=== PATIENT | female | born 1965 | race Caucasian/White ===

== ENCOUNTER 2018-12-15 19:59 | Observation (INO) ==
[2018-12-15 21:09] LABS: Baso % (Auto) 0.5 % (0.0-2.0); Eos # (Auto) 0.2 th/mm3 (0.0-0.4); Eos % (Auto) 2.1 % (0.0-4.0); Hematocrit 41.8 % (35.0-46.0); Hemoglobin 14.1 gm/dL (11.6-15.3); Lymph # (Auto) 2.9 th/mm3 (1.0-4.8); Lymph % (Auto) 38.5 % (9.0-44.0); Mean Corpuscular HGB Conc 33.7 % (32.0-36.0); Mean Corpuscular Hemoglobin 32.1 pg (27.0-34.0); Mean Corpuscular Volume 95.2 fL (80.0-100.0); Mono # (Auto) 0.6 th/mm3 (0.0-0.9); Mono % (Auto) 8.3 % (0.0-8.0); Neut # (Auto) 3.8 th/mm3 (1.8-7.7); Neut % (Auto) 50.6 % (16.0-70.0); Platelet Count 223 th/mm3 (150-450); Red Blood Count 4.39 mil/mm3 (4.00-5.30); Red Cell Distribution Width 13.8 % (11.6-17.2); White Blood Count 7.6 th/mm3 (4.0-11.0)
[2018-12-15 21:19] LABS: Bilirubin,Urine Negative (Negative); Clarity,Urine Hazy (Clear); Color,Urine Yellow (Yellw/Straw); Glucose,Urine (UA) Negative (Negative); Leukocyte Esterase,Urine Small (Negative); Mucus,Urine Few /lpf (Occasional); Nitrite,Urine Negative (Negative); Specific Gravity,Urine 1.021 (1.002-1.035); Squamous Epithelial Cell,Urine 2 /hpf (0-5)
[2018-12-15 21:22] LABS: Activated Partial Thrombo Time 30.3 sec (23.4-31.7); Prothrombin Time 10.6 sec (9.8-11.6)
[2018-12-15 21:33] LABS: Anion Gap 5 meq/L (5-15); Aspartate Aminotransferase 14 U/L (15-37); Blood Urea Nitrogen 21 mg/dL (7-18); Calcium 8.8 mg/dL (8.5-10.1); Carbon Dioxide 30.3 meq/L (21.0-32.0); Chloride 108 meq/L (98-107); Glomerular Filtration Rate 85 mL/min (>89); Glucose,Random 113 mg/dL (74-106); Potassium 3.5 meq/L (3.5-5.1); Sodium 143 meq/L (136-145)
[2018-12-15 21:34] LABS: Alanine Aminotransferase 20 U/L (10-53)
[2018-12-15 21:38] LABS: Alkaline Phosphatase 80 U/L (45-117); Total Protein 7.2 g/dL (6.4-8.2)
[2018-12-15 21:51] LABS: Creatine Kinase 50 U/L (26-192)
--- NOTE | 2018-12-15 23:47 | ED ---
HPI General Chief complaint: Dizziness Stated complaint: Heart palpitations, respiratory Time Seen by Provider: 12/15/18 23:27 Source: patient, family, RN notes reviewed and old records reviewed Mode of arrival: ambulatory History of Present Illness HPI narrative: 53yF presenting with dizziness. The patient was seen in our department 2 days ago for the same symptoms, had an extensive workup performed which showed no acute abnormalities, and was discharged home with meclizine. The patient states that the meclizine is no longer helping her symptoms. She says that when she goes from a seated to a standing position she gets sudden- onset feeling "like I'm going to pass out", associated with palpitations, diaphoresis, and dyspnea. She says that she has a history of vertigo and feels that these symptoms are different. Denies fever or chills, head injury, chest pain, nausea or vomiting. She has no significant past medical history. Related Data Home Medications Medication Instructions Recorded Confirmed aspirin [Aspir-81] 81 mg PO DAILY 12/13/18 12/15/18 Previous Rx's Medication Instructions Recorded meclizine 25 mg PO DAILY PRN #20 tab 12/14/18 Allergies Allergy/AdvReac Type Severity Reaction Status Date / Time No Known Allergies Allergy Verified 12/15/18 20:17 Review of Systems ROS: all other systems reviewed are negative [facility] Medical History Medical History Patient denies medical problems (Acute) Surgical History Surgical History No history of previous surgery (Acute) Social History Social History Substance History: No History of Abuse Second Hand Smoke Exposure: No Smoking Status: Heavy tobacco smoker Tobacco Type: Cigarettes How Often Do You Have a Drink Containing Alcohol: Never Recent Travel in [facility] within the Last 8 Weeks: No Recent Out of Country Travel within the Last 8 Weeks: No Immunization History Tetanus Immunization: Unsure Exam Const General: healthy appearing and no acute distress [facility] Head: normocephalic and atraumatic Face and sinus: normal facial exam Eyes General: appearance normal, both eyes and all related structures Pupils: PERRL Chest Chest: normal inspection of the chest Resp Effort & Inspection: normal respiratory effort Auscultation: no rhonchi and no wheezes Cardio Rate: regular rate Rhythm: regular rhythm GI Inspection: non-distended Palpation: soft and nontender Skin General: no rashes or lesions noted Neuro General: alert, awake, oriented x3 and no focal motor deficits Other: No nystagmus Motor strength 5/5 and sensation intact to extremities, no drift Patient reports return of symptoms when I asked her to sit up from a lying position Course Initial Documented Vital Signs Temperature 98.5 F 12/15/18 20:12 Pulse Rate 79 12/15/18 20:12 Respiratory Rate 18 12/15/18 20:12 Blood Pressure 127/62 12/15/18 20:12 Pulse Oximetry 100 12/15/18 20:12 Last Documented Vital Signs Temperature 98 F 12/16/18 20:00 Pulse Rate 70 12/16/18 20:00 Respiratory Rate 16 12/16/18 20:00 Blood Pressure 117/63 12/16/18 20:00 Pulse Oximetry 97 12/16/18 20:00 Medical Decision Making [facility] Narrative Medical decision making narrative: Assessment: 53yF presenting with dizziness Plan: Patient had repeat labs sent by training mgr, no abnormalities, negative cardiac enzymes, no anemia or electrolyte abnormalities EKG is NSR, no arrhythmias Will check orthostatic vitals and CXR; if patient is orthostatic, would start IV and give 2L NS bolus If orthostatics/ CXR are negative, would give patient a scopolamine patch and referral to cardiology for outpatient evaluation and possible Holter monitoring ____ Patient was evaluated/reassessed by myself via the RMA process CT of the head is negative and lab work is unremarkable After 2 L orthostatics were repeated and are negative. Patient is still continuing to feel dizzy lightheaded and had palpitations Patient will be admitted to medicine for observation for neurology and cardiology consult Medical Screen Exam Complete: Yes Emergency Medical Condition: Yes Differential Diagnosis Differential Diagnosis: Differential diagnosis includes, but is not limited to: orthostatic hypotension, dehydration, electrolyte abnormality, arrhythmia, URI/ bronchitis, pneumonia, UTI Medical Records Medical records reviewed: Yes I reviewed the patient's medical records. Lab Data Lab results reviewed: Yes I reviewed the patient's lab results. Result diagrams: 12/15/18 20:30 12/15/18 20:30 Lab Results 12/15/18 12/15/1812/15/19 Range/Units 20:30 20:30 20:30 WBC 7.6 (4.0-11.0) th/mm3 RBC 4.39 (4.00-5.30) mil/mm3 Hgb 14.1 (11.6-15.3) gm/dL Hct 41.8 (35.0-46.0) % MCV 95.2 (80.0-100.0) fL MCH 32.1 (27.0-34.0) pg MCHC 33.7 (32.0-36.0) % RDW 13.8 (11.6-17.2) % Plt Count 223 (150-450) th/mm3 MPV 11.0 (7.0-11.0) fL Neut % (Auto) 50.6 (16.0-70.0) % Lymph % (Auto) 38.5 (9.0-44.0) % [place] % (Auto) 8.3 H (0.0-8.0) % Eos % (Auto) 2.1 (0.0-4.0) % Baso % (Auto) 0.5 (0.0-2.0) % Neut # (Auto) 3.8 (1.8-7.7) th/mm3 Lymph # (Auto) 2.9 (1.0-4.8) th/mm3 [place] # (Auto) 0.6 (0.0-0.9) th/mm3 Eos # (Auto) 0.2 (0.0-0.4) th/mm3 Baso # (Auto) 0.0 (0.0-0.2) th/mm3 WBC Differential . Differential Comment Auto diff final PT 10.6 (9.8-11.6) sec INR 1.0 Ratio APTT 30.3 (23.4-31.7) sec Sodium 143 (136-145) meq/L Potassium 3.5 (3.5-5.1) meq/L Chloride 108 H (98-107) meq/L Carbon Dioxide 30.3 (21.0-32.0) meq/L Anion Gap 5 (5-15) meq/L BUN 21 H (7-18) mg/dL Creatinine 0.71 (0.50-1.00) mg/dL Estimated GFR 85 L (>89) mL/min Random Glucose 113 H (74-106) mg/dL Calcium 8.8 (8.5-10.1) mg/dL Magnesium (1.5-2.5) mg/dL Total Bilirubin 0.5 (0.2-1.0) mg/dL AST 14 L (15-37) U/L ALT 20 (10-53) U/L Alkaline Phosphatase 80 (45-117) U/L Total Creatine Kinase 50 (26-192) U/L Troponin I Less than 0.02 L (0.02-0.05) ng/mL Total Protein 7.2 (6.4-8.2) g/dL Albumin 4.0 (3.4-5.0) g/dL Urine Color (Yellw/Straw) Urine Clarity (Clear) Urine pH (5.0-8.5) Ur Specific [place] (1.002-1.035) Urine Protein (Neg-Trace) mg/dL Urine Glucose (UA) (Negative) mg/dL Urine Ketones (Negative) mg/dL Urine Occult Blood (Negative) Urine Nitrate (Negative) Urine Bilirubin (Negative) Urine Urobilinogen (Less than 2) mg/dL Ur Leukocyte Esterase (Negative) Urine WBC (0-5) /hpf Ur Squamous Epith Cells (0-5) /hpf Urine Mucus (Occasional) /lpf Micro UA Comment Ur Microscopic Review Urine Culture Comments 12/15/18 12/16/18 12/16/18 Range/Units 20:30 10:34 13:45 WBC (4.0-11.0) th/mm3 RBC (4.00-5.30) mil/mm3 Hgb (11.6-15.3) gm/dL Hct (35.0-46.0) % MCV (80.0-100.0) fL MCH (27.0-34.0) pg MCHC (32.0-36.0) % RDW (11.6-17.2) % Plt Count (150-450) th/mm3 MPV (7.0-11.0) fL Neut % (Auto) (16.0-70.0) % Lymph % (Auto) (9.0-44.0) % [place] % (Auto) (0.0-8.0) % Eos % (Auto) (0.0-4.0) % Baso % (Auto) (0.0-2.0) % Neut # (Auto) (1.8-7.7) th/mm3 Lymph # (Auto) (1.0-4.8) th/mm3 [place] # (Auto) (0.0-0.9) th/mm3 Eos # (Auto) (0.0-0.4) th/mm3 Baso # (Auto) (0.0-0.2) th/mm3 WBC Differential Differential Comment PT (9.8-11.6) sec INR Ratio APTT (23.4-31.7) sec Sodium (136-145) meq/L Potassium (3.5-5.1) meq/L Chloride (98-107) meq/L Carbon Dioxide (21.0-32.0) meq/L Anion Gap (5-15) meq/L BUN (7-18) mg/dL Creatinine (0.50-1.00) mg/dL Estimated GFR (>89) mL/min Random Glucose (74-106) mg/dL Calcium (8.5-10.1) mg/dL Magnesium 1.9 (1.5-2.5) mg/dL Total Bilirubin (0.2-1.0) mg/dL AST (15-37) U/L ALT (10-53) U/L Alkaline Phosphatase (45-117) U/L Total Creatine Kinase (26-192) U/L Troponin I 0.02 0.02 (0.02-0.05) ng/mL Total Protein (6.4-8.2) g/dL Albumin (3.4-5.0) g/dL Urine Color Yellow (Yellw/Straw) Urine Clarity Hazy H (Clear) Urine pH 7.0 (5.0-8.5) Ur Specific [place] 1.021 (1.002-1.035) Urine Protein Negative (Neg-Trace) mg/dL Urine Glucose (UA) Negative (Negative) mg/dL Urine Ketones Negative (Negative) mg/dL Urine Occult Blood Negative (Negative) Urine Nitrate Negative (Negative) Urine Bilirubin Negative (Negative) Urine Urobilinogen Less than 2 (Less than 2) mg/dL Ur Leukocyte Esterase Small H (Negative) Urine WBC 5 (0-5) /hpf Ur Squamous Epith Cells 2 (0-5) /hpf Urine Mucus Few H (Occasional) /lpf Micro UA Comment Culture not ind Ur Microscopic Review Not Reportable Urine Culture Comments Culture not ind Imaging Data Radiologist's impression: Chest X-Ray 12/15/18 23:39 CONCLUSION: No acute disease ECG Data Attestation: I personally reviewed and interpreted this ECG as follows: Interpretation: Rate: 67 BPM Rhythm: Sinus [place]: Normal Intervals: Normal intervals, no blocks, QTc 404 ms Q waves: aVL T waves: Inverted in aVL ST segments: No elevations or depressions Impression: Non-specific EKG, no changes as compared to EKG from 12/13/2018. Discharge Plan Discharge Disposition Patient Disposition: ED Admit(ED Internal Use Only) Discharge Condition Condition: Stable Discharge Order Discharge Orders: ED Use Only Admit Order (Routine); Ordered 12/16/18 Ordered By: Amisha Redman Discharge Details Diagnosis: Near syncope, Dizziness, Heart palpitations Physicians Team ED Provider: Marguerite Campbell ED Midlevel Provider: Amisha Redman Primary Care Provider: Primary Care Marybeth Paniagua Attending Provider: Josh Vaca Status ED Status: Left Department Discharge Information Discharge Date/Time: 12/16/18 05:43
[2018-12-16] MEDS ORDERED: Sod Chloride 0.9% Inj 2,000 ML IV.SIG ONE (00:10)
--- NOTE | 2018-12-16 00:18 | XR ---
EXAM DATE: 12/16/2018 12:00 AM EST AGE/SEX: 53 years / Female INDICATIONS: . Cough. CLINICAL DATA: This is the patient's initial encounter. Patient reports that signs and symptoms have been present for 1 day and indicates a pain score of 0/10. MEDICAL/SURGICAL HISTORY: None. None. COMPARISON: No prior exams available for comparison. FINDINGS: PA and lateral views of the chest demonstrate the lungs to be symmetrically aerated without evidence of mass, infiltrate or effusion. The cardiomediastinal contours are unremarkable. Osseous structures are intact. CONCLUSION: No acute disease Electronically signed by: Jim Buenrostro MD Board Certified Radiologist 12/16/2018 12:16 AM EST
[2018-12-16] MEDS ORDERED: LORazepam 0.5 MG Tablet PO ONE ×2 (03:30→03:34)
[2018-12-16] MEDS ORDERED: Bisacodyl 10 MG Supp RECTAL PRN (03:50)
[2018-12-16] MEDS ORDERED: Acetaminophen 325 MG Tablet PO PRN (03:50)
[2018-12-16] MEDS: Sod Chloride 0.9% Inj 1,000 ML IV.CONT SCH ×2 (04:01→15:12)
--- NOTE | 2018-12-16 04:50 | P.HPIM ---
History of Present Illness Primary Care Physician: No Primary Care Physician History of Present Illness: This is a 53-year-old female with no significant PMH who presents the ER with complaints of significant dizziness and near syncopal episode. Seen in the ER on 12/13/2018 for similar complaints w/ negative work up, s/p Meclizine w/ improvement, states she was feeling better by the time she was discharged, however has been having worsening dizziness unrelieved by Meclizine. Today w/ intense dizziness and near syncopal event in addition to c/o palpitations. Notes increased stress/anxiety due to 's recent ID. On arrival, BP 145/87, HR is 77, O2 sat 99% on RA, Afebrile. CBC unremarkable. INR 1.0. BUN 21, previously 16 on 12/13/2018. Troponin negative. UA negative for UTI. Orthostatic Vitals +, s/p 2L IVF in ER w/ normal orthostatics, however persistent dizziness. Diagnosis (1) Near syncope: (2) Dizziness: (3) Heart palpitations: Review of Systems PAST FAMILY HISTORY: Reviewed. No h/o DM or CAD Review of Systems: all other systems reviewed are negative [facility] Medical History Medical History Patient denies medical problems (Acute) Surgical History Surgical History No history of previous surgery (Acute) Social History Social History Substance History: No History of Abuse Second Hand Smoke Exposure: Yes Smoking Status: Heavy tobacco smoker Tobacco Type: Cigarettes How Often Do You Have a Drink Containing Alcohol: Never Recent Travel in [facility] within the Last 8 Weeks: No Recent Out of Country Travel within the Last 8 Weeks: No Immunization History Tetanus Immunization: Unsure Medications and Allergies Allergies Allergy/AdvReac Type Severity Reaction Status Date / Time No Known Allergies Allergy Verified 12/15/18 20:17 Home Medications Medication Instructions Recorded Confirmed Type aspirin [Aspir-81] 81 mg PO DAILY 12/13/18 12/15/18 History Active Medications: Active Medications Acetaminophen (Tylenol) 650 mg PO Q4H PRN PRN Reason: Temp > 100.4 Al Hydroxide/Mg Hydroxide (Milk Of Magnesia Liq) 30 ml PO Q12H PRN PRN Reason: Mild Constipation Aspirin (Ecotrin) 81 mg PO DAILY YARIEL Bisacodyl (Dulcolax Supp) 10 mg RECTAL DAILY PRN PRN Reason: SEVERE CONSITIPATION Sodium Chloride (Ns Inj) 1,000 mls @ 100 mls/hr IV.CONT .Q10H YARIEL Lactulose (Lactulose Liq) 30 ml PO DAILY PRN PRN Reason: SEVERE CONSITIPATION Lorazepam (Ativan Inj) 1 mg IV.PUSH Q2H PRN PRN Reason: DIZZINESS Meclizine HCl (Antivert) 25 mg PO Q8H PRN PRN Reason: DIZZINESS Ondansetron HCl (Zofran Inj) 4 mg IV.PUSH Q6H PRN PRN Reason: NAUSEA OR VOMITING Senna/Docusate Sodium (Chandni-Colace) 1 tab PO BID YARIEL Sennosides (Senokot) 17.2 mg PO Q12H PRN PRN Reason: Moderate Constipation Sodium Chloride (Ns Flush) 2 ml IV.FLUSH BID YARIEL Sodium Chloride (Ns Flush) 2 ml IV.FLUSH PRN PRN PRN Reason: FLUSH AFTER USING IV ACCESS Physical Exam Vital signs: Vital Signs 12/15/18 20:12 Temperature 98.5 F Pulse Rate 79 Respiratory Rate 18 Blood Pressure 127/62 Pulse Oximetry 100 Intake & Output 12/15/18 12/15/18 12/16/18 06:59 18:59 06:59 Intake Total 1999 Balance 1999 Weight 56.699 kg Intake: IV 1999 NS Inj 2,000 ML @ Wide Open IV. 1999 SIG BOLUS ONE Rx#:[id number] Narrative: PE: GENERAL: Very pleasant middle-aged white female in no acute distress. at bedside. +dizziness upon sitting up. SKIN: Focused skin assessment warm and dry. HEENT: PERRLA, EOMI. No scleral icterus or conjunctival pallor. No lid lag or facial droop. CARDIOVASCULAR: Regular rate and rhythm. No obvious murmurs to auscultation. No chest tenderness to palpation. RESPIRATORY: No obvious rhonchi or wheezing. Clear to auscultation. Breath sounds equal bilaterally. GASTROINTESTINAL: Abdomen soft, non-tender, nondistended. BS normal. MUSCULOSKELETAL: Extremities without clubbing, cyanosis, or edema. No obvious deformities. NEUROLOGICAL: Awake, alert and oriented x4. No focal neurologic deficits. Moving both upper and lower extremities spontaneously. PSYCHIATRIC: Appropriate mood and affect. Insight and judgment normal. Results Labs CBC & Chem 7: 12/15/18 20:30 12/15/18 20:30 Imaging Impressions Chest X-Ray 12/15/18 23:39 CONCLUSION: No acute disease Caprini VTE Risk Assessment Caprini VTE Risk Assessment: No/Low Risk (score <= 1) Caprini Risk Assessment Model: Point Value = 1 Point Value = 2 Point Value = 3 Point Value = 5 Age 41-60 Minor surgery BMI > 25 kg/m2 Swollen legs Varicose veins or History of unexplained or recurrent spontaneous Oral contraceptives or hormone replacement Sepsis (< 1 month) Serious lung disease, including pneumonia (< 1 month) Abnormal pulmonary function Acute myocardial infarction Congestive heart failure (< 1 month) History of inflammatory bowel disease Medical patient at bed rest Age 61-74 Arthroscopic surgery Major open surgery (> 45 min) Laparoscopic surgery (> 45 min) Malignancy Confined to bed (> 72 hours) Immobilizing plaster cast Central venous access Age >= 75 History of VTE Family history of VTE Factor V Leiden Prothrombin [id number] Lupus anticoagulant Anticardiolipin antibodies Elevated serum homocysteine Heparin-induced thrombocytopenia Other congenital or acquired thrombophilia Stroke (< 1 month) Elective arthroplasty Hip, pelvis, or leg fracture Acute spinal cord injury (< 1 month) Prophylaxis Regimen: Total Risk Factor Score Risk Level Prophylaxis Regimen 0-1 Low Early ambulation 2 Moderate Order ONE of the following: *Sequential Compression Device (SCD) *Heparin 5000 units SQ BID 3-4 Higher Order ONE of the following medications: *Heparin 5000 units SQ TID *Enoxaparin/Lovenox 40 mg SQ daily (WT < 150 kg, CrCl > 30 mL/min) *Enoxaparin/Lovenox 30 mg SQ daily (WT < 150 kg, CrCl > 10-29 mL/min) *Enoxaparin/Lovenox 30 mg SQ BID (WT < 150 kg, CrCl > 30 mL/min) AND/OR *Sequential Compression Device (SCD) 5 or more Highest Order ONE of the following medications: *Heparin 5000 units SQ TID (Preferred with Epidurals) *Enoxaparin/Lovenox 40 mg SQ daily (WT < 150 kg, CrCl > 30 mL/min) *Enoxaparin/Lovenox 30 mg SQ daily (WT < 150 kg, CrCl > 10-29 mL/min) *Enoxaparin/Lovenox 30 mg SQ BID (WT < 150 kg, CrCl > 30 mL/min) AND *Sequential Compression Device (SCD) Assessment and Plan (1) Near syncope: Code(s): R55 - Syncope and collapse Status: Acute (2) Dizziness: Code(s): R42 - Dizziness and giddiness Status: Acute (3) Heart palpitations: Code(s): R00.2 - Palpitations Status: Acute Plan A/P: 1. Dizziness: h/o Vertigo, seen in ER on 12/13/18 for similar complaints, initially improved w/ Meclizine, now unrelieved. +Orthostatic Vitals/ dehydration likely underlying etiology, CT Head w/ no acute findings. PT for eval/tx, IVF for hydration, Meclizine prn, Ativan prn. 2. Near Syncope: secondary to above, IVF for hydration, telemetry, Check Echo to eval for valvular abnormality/cardiomyopathy, monitor I/O. 3. Palpitations: secondary to above, electrolytes normal, add Mg, telemetry, check Echo as above. 4. DVT Prophylaxis: SCD/teds. 5. Social work for DC planning as needed 6. Case discussed at length with the ER physician, labs/records/imaging reviewed by me.
[2018-12-16] MEDS: Senna/Docusate Sodium 8.6/50 MG Tablet PO SCH ×3 (10:14→20:38)
[2018-12-16 11:52] LABS: Magnesium 1.9 mg/dL (1.5-2.5)
[2018-12-16 11:54] LABS: Troponin I 0.02 ng/mL (0.02-0.05)
--- NOTE | 2018-12-16 14:08 | ECHRPT ---
Indication: SYNCOPE CONCLUSIONS Normal left ventricular size. Wall thickness is normal. Left ventricular systolic function is normal with an estimated ejection fraction in the range of 50- 55%. No definite regional wall motion abnormalities are present. No definite valvular abnormalities. The aortic valve is not well visualized. BP: / HR: Rhythm: Sinus MEASUREMENTS (Male / Female) Normal Values Technical Quality:Fair 2D ECHO LV Diastolic Diameter PLAX 4.2 cm 4.2 - 5.9 / 3.9 - 5.3 cm LV Systolic Diameter PLAX 2.9 cm IVS Diastolic Thickness 0.9 cm 0.6 - 1.0 / 0.6 - 0.9 cm LVPW Diastolic Thickness 0.8 cm 0.6 - 1.0 / 0.6 - 0.9 cm LV Relative Wall Thickness 0.4 RV Internal Dim ED PLAX 2.3 cm LVOT Diameter 2.0 cm Aortic Root Diameter 2.7 cm LA Systolic Diameter LX 2.7 cm 3.0 - 4.0 / 2.7 - 3.8 cm M-MODE AV Cusp Separation MM 1.5 cm DOPPLER AV Peak Velocity 112.0 cm/s AV Peak Gradient 5.0 mmHg AV Mean Gradient 3.0 mmHg AV Velocity Time Integral 23.3 cm LVOT Peak Velocity 97.0 cm/s LVOT Peak Gradient 3.8 mmHg LVOT Velocity Time Integral 21.2 cm AV Area Cont Eq vti 2.9 cm AV Area Cont Eq pk 2.7 cm Mitral E Point Velocity 91.8 cm/s Mitral A Point Velocity 69.6 cm/s Mitral E to A Ratio 1.3 LV E' Lateral Velocity 13.5 cm/s Mitral E to LV E' Lateral Ratio 6.8 LV E' Septal Velocity 12.6 cm/s Mitral E to LV E' Septal Ratio 7.3 FINDINGS LEFT VENTRICLE Normal left ventricular size. Wall thickness is normal. Left ventricular systolic function is normal with an estimated ejection fraction in the range of 50- 55%. No definite regional wall motion abnormalities are present. RIGHT VENTRICLE Normal right ventricular size and systolic function. LEFT ATRIUM The left atrial size is normal. RIGHT ATRIUM The right atrial size is normal. ATRIAL SEPTUM No atrial level shunt is demonstrated by color flow Doppler interrogation. AORTA The aortic root and proximal ascending aorta are not well visualized. MITRAL VALVE Structurally normal mitral valve. No mitral valve stenosis or regurgitation. AORTIC VALVE The aortic valve is not well visualized. TRICUSPID VALVE Structurally normal tricuspid valve. No tricuspid valve stenosis or regurgitation. PULMONARY VALVE The pulmonary valve is not well visualized. VESSELS The inferior vena cava is normal in size. PERICARDIUM No pericardial effusion. Christoph Ray MD (Electronically Signed) Final Date:16 December 2018 14:06
--- NOTE | 2018-12-16 14:11 | ECG ---
Date Performed: 12/15/2018 Time Performed: 20:26:59 PTAGE: 53 years EKG: Sinus rhythm NONSPECIFIC ST & T-WAVE ABNORMALITY BORDERLINE ECG No significant change from prior electrocardiogra m. PREVIOUS TRACING : 12/13/2018 21.18 DOCTOR: Matt Verduzco Interpretating Date/Time 12/16/2018 14:10:00
[2018-12-17] MEDS: Sod Chloride 0.9% Inj 1,000 ML IV.CONT SCH ×2 (00:38→11:59)
[2018-12-17 07:29] VITALS: RESP 18
--- NOTE | 2018-12-17 09:07 | P.PNIM ---
Subjective Interval history: Follow-up visit dizziness, vertigo Patient seen and examined while resting in bed. Significant other at bedside. Patient expresses concern over persistent vertigo and dizziness. She recently witnessed her significant other have a heart attack and chest compressions. Since this event she reports increased anxiety and concern over PTSD. She is tearful at time of examination. Patient expresses concern over her unsteady gait. She reports feeling "wabbly"and is afraid of not being able to ambulate on her own. Patient states vertigo and dizziness were present before witnessing the heart attack but states symptoms slightly worse since the incident. Physical Exam Vital signs: Vital Signs 12/16/18 10:15 12/16/18 11:54 12/16/18 15:40 Temperature 98.4 F 98.0 F Pulse Rate 73 56 L 62 Respiratory Rate 16 16 Blood Pressure 108/57 L 183/75 H Pulse Oximetry 96 97 12/16/18 16:00 12/16/18 20:00 12/17/18 00:00 Temperature 98.4 F 98 F Pulse Rate 58 L 60 65 Respiratory Rate 16 16 Blood Pressure 122/63 117/63 Pulse Oximetry 97 97 12/17/18 01:14 12/17/18 04:00 12/17/18 07:27 Temperature 97.9 F 97.9 F 98.5 F Pulse Rate 58 L 62 68 Respiratory Rate 16 16 18 Blood Pressure 115/66 122/64 121/67 Pulse Oximetry 97 97 98 Intake & Output 12/16/18 12/17/18 12/17/18 18:59 06:59 18:59 Intake Total 1000 / 1000 1180 / 1180 Balance 1000 / 1000 1180 / 1180 Intake: IV 1000 / 1000 1000 / 1000 NS Inj 1,000 ML @ 100 mls/hr IV 1000 / 1000 1000 / 1000 .CONT .Q10H [facility] Rx#:[id number] Oral 180 / 180 Other: # Voids 7 2 Date of Last Bowel Movement 12/15/18 12/16/18 # Bowel Movements 1 Narrative: GENERAL: Very pleasant middle-aged white female in no acute distress. at bedside. +dizziness upon sitting/standing up. SKIN: Focused skin assessment warm and dry. HEENT: PERRLA, EOMI. No scleral icterus or conjunctival pallor. No lid lag or facial droop. CARDIOVASCULAR: Regular rate and rhythm. No obvious murmurs to auscultation. No chest tenderness to palpation. RESPIRATORY: No obvious rhonchi or wheezing. Clear to auscultation. Breath sounds equal bilaterally. GASTROINTESTINAL: Abdomen soft, non-tender, nondistended. BS normal. MUSCULOSKELETAL: Extremities without clubbing, cyanosis, or edema. No obvious deformities. NEUROLOGICAL: Awake, alert and oriented x4. No focal neurologic deficits. Moving both upper and lower extremities spontaneously. PSYCHIATRIC: Appropriate mood and affect. Insight and judgment normal. Results Labs CBC & Chem 7: 12/17/18 09:29 12/17/18 09:29 Assessment and Plan (1) Near syncope: Code(s): R55 - Syncope and collapse Status: Acute (2) Dizziness: Code(s): R42 - Dizziness and giddiness Status: Acute (3) Heart palpitations: Code(s): R00.2 - Palpitations Status: Acute Plan This is a 53-year-old female with no significant PMH who presents the ER with complaints of significant dizziness and near syncopal episode. Seen in the ER on 12/13/2018 for similar complaints w/ negative work up, s/p Meclizine w/ improvement, states she was feeling better by the time she was discharged, however has been having worsening dizziness unrelieved by Meclizine. Dizziness/Vertigo -h/o Vertigo -seen in ER on 12/13/18 for similar complaints, initially improved w/ Meclizine, now unrelieved. -dehydration likely contributing, however, patient reports no change in symptoms s/p hydration with IV fluids -repeat Orthostatics (-) -CT Head w/ no acute findings -PT for eval/tx, rec outpatient follow up for continued evaluation of vertigo. CM consulted for assistance with providing blue card and info for vestibular rehab. -continue Meclizine PRN -pt concerned about safety secondary to unsteady gait and inability to operate motor vehicle with current symptoms. Advised not to drive until symptoms resolve. -Neurology consulted, MRI brain and spine ordered by neuro, findings reviewed and no acute process -B12, ESR and TSH level pending. Patient has outpatient PCP appointment tomorrow and she was advised to follow up in regards to her results. -ENT referral for evaluation of inner ear Concern for PTSD -after witnessing significant other having PA and chest compressions a few weeks ago -Pych consult for evaluation, pt would like to see psychologist outpatient and stay away from medication. No inpatient psychiatric treatment indicated. Near Syncope -secondary to above -IVF for hydration, telemetry -echo -> no evidence of CM or definite valvular abnormalities, EF 50-55% Palpitations -secondary to above -electrolytes normal -echo reviewed MDM: self Code: Full GI ppx: not indicated DVT ppx: SCD's Discussed with: RN, supervising MD, patient and significant other Dispo: Home, pt cleared by all specialists Discharge patient: home Condition on discharge: stable Regular Diet as tolerated Ad Jaz activity Rx written: none Follow-up with primary care physician in 1 week. (patient has appt scheduled am 12/18/18) Outpatient vestibular rehab referral Outpatient ENT referral Progress Note: Quality VTE Deep Vein Thrombosis/Pulmonary Embolism Present on Admission: No
[2018-12-17 09:50] LABS: Baso % (Auto) 0.5 % (0.0-2.0); Eos # (Auto) 0.2 th/mm3 (0.0-0.4); Eos % (Auto) 2.4 % (0.0-4.0); Hematocrit 36.8 % (35.0-46.0); Hemoglobin 12.6 gm/dL (11.6-15.3); Lymph # (Auto) 2.4 th/mm3 (1.0-4.8); Lymph % (Auto) 35.2 % (9.0-44.0); Mean Corpuscular HGB Conc 34.2 % (32.0-36.0); Mean Corpuscular Volume 96.4 fL (80.0-100.0); Mean Platelet Volume 10.6 fL (7.0-11.0); Mono # (Auto) 0.4 th/mm3 (0.0-0.9); Mono % (Auto) 5.5 % (0.0-8.0); Neut # (Auto) 3.9 th/mm3 (1.8-7.7); Neut % (Auto) 56.4 % (16.0-70.0); Platelet Count 192 th/mm3 (150-450); Red Blood Count 3.82 mil/mm3 (4.00-5.30); Red Cell Distribution Width 13.8 % (11.6-17.2); White Blood Count 6.8 th/mm3 (4.0-11.0)
[2018-12-17] MEDS: Senna/Docusate Sodium 8.6/50 MG Tablet PO SCH (09:57)
[2018-12-17 10:18] LABS: Alanine Aminotransferase 23 U/L (10-53); Albumin 3.3 g/dL (3.4-5.0); Alkaline Phosphatase 67 U/L (45-117); Anion Gap 5 meq/L (5-15); Aspartate Aminotransferase 16 U/L (15-37); Blood Urea Nitrogen 8 mg/dL (7-18); Calcium 8.3 mg/dL (8.5-10.1); Carbon Dioxide 25.8 meq/L (21.0-32.0); Chloride 114 meq/L (98-107); Glomerular Filtration Rate Greater Than 89 mL/min (>89); Glucose,Random 82 mg/dL (74-106); Potassium 3.8 meq/L (3.5-5.1); Sodium 145 meq/L (136-145); Total Protein 6.2 g/dL (6.4-8.2)
--- NOTE | 2018-12-17 10:45 | P.CONNEU ---
History of Present Illness Service: Neurology Primary Care Provider: No Primary Care Physician Chief Complaint: Dizziness History of Present Illness: 53-year-old female admitted for dizziness and additional symptoms by the hospitalist service. States she has been off balance feeling dizzy at times spinning sensation for the past several weeks. He is in the ER given meclizine which helped. Symptoms are worse sometimes if she turns quickly or turns her head. She occasionally gets lightheaded going from sitting and standing. Denies any head or neck trauma any headache neck pain or radicular symptomatology. Denies any vision loss focal weakness or sensory symptoms. Denies any history of TIA stroke or demyelinating disease. Denies any history of tremors. Review of Systems All other systems reviewed negative except as stated in HPI [facility] - History History Provided By: Patient - Medical History Medical History: Medical History (Last Reviewed 12/16/18 @ 09:01 by Minna Fine) Patient denies medical problems - Surgical History Surgical History: Surgical History (Last Reviewed 12/16/18 @ 09:01 by Minna Fine) No history of previous surgery - Tobacco History Second Hand Smoke Exposure: No Tobacco Use In Past 30 Days: No Smoking Status: Heavy tobacco smoker Tobacco Type: Cigarettes - Alcohol History How Often Do You Have a Drink Containing Alcohol: Never - Substance Use History Substance History: No History of Abuse - Travel History Recent Travel in the [place] Within the Last 8 Weeks: No Recent Travel Out of the Country Within the Last 8 Weeks: No - Immunization History Tetanus Immunization: Unsure Medications and Allergies Active Medications: Active Medications Acetaminophen (Tylenol) 650 mg PO Q4H PRN PRN Reason: Temp > 100.4 Al Hydroxide/Mg Hydroxide (Milk Of Magnesia Liq) 30 ml PO Q12H PRN PRN Reason: Mild Constipation Aspirin (Ecotrin) 81 mg PO DAILY [facility] Last Admin: 12/17/18 09:57 Dose: 81 mg Bisacodyl (Dulcolax Supp) 10 mg RECTAL DAILY PRN PRN Reason: SEVERE CONSITIPATION Sodium Chloride (Ns Inj) 1,000 mls @ 100 mls/hr IV.CONT .Q10H [facility] Last Infusion: 12/17/18 09:58 Dose: 0 mls/hr Lactulose (Lactulose Liq) 30 ml PO DAILY PRN PRN Reason: SEVERE CONSITIPATION Lorazepam (Ativan Inj) 1 mg IV.PUSH Q2H PRN PRN Reason: DIZZINESS Last Admin: 12/17/18 02:00 Dose: 1 mg Meclizine HCl (Antivert) 25 mg PO Q8H PRN PRN Reason: DIZZINESS Last Admin: 12/17/18 09:59 Dose: 25 mg Ondansetron HCl (Zofran Inj) 4 mg IV.PUSH Q6H PRN PRN Reason: NAUSEA OR VOMITING Senna/Docusate Sodium (Chandni-Colace) 1 tab PO BID [facility] Last Admin: 12/17/18 09:57 Dose: 1 tab Sennosides (Senokot) 17.2 mg PO Q12H PRN PRN Reason: Moderate Constipation Sodium Chloride (Ns Flush) 2 ml IV.FLUSH BID [facility] Last Admin: 12/17/18 09:57 Dose: 2 ml Sodium Chloride (Ns Flush) 2 ml IV.FLUSH PRN PRN PRN Reason: FLUSH AFTER USING IV ACCESS Last Admin: 12/16/18 20:38 Dose: 2 ml Allergies Allergy/AdvReac Type Severity Reaction Status Date / Time No Known Allergies Allergy Verified 12/15/18 20:17 Home Medications Medication Instructions Recorded Confirmed Type aspirin [Aspir-81] 81 mg PO DAILY 12/13/18 12/15/18 History Exam Vital signs: Vital Signs 12/16/18 11:54 12/16/18 15:40 12/16/18 16:00 Temperature 98.4 F 98.0 F 98.4 F Pulse Rate 56 L 62 58 L Respiratory Rate 16 16 16 Blood Pressure 108/57 L 183/75 H 122/63 Pulse Oximetry 96 97 97 12/16/18 20:00 12/17/18 00:00 12/17/18 01:14 Temperature 98 F 97.9 F Pulse Rate 60 65 58 L Respiratory Rate 16 16 Blood Pressure 117/63 115/66 Pulse Oximetry 97 97 12/17/18 04:00 12/17/18 07:27 Temperature 97.9 F 98.5 F Pulse Rate 62 68 Respiratory Rate 16 18 Blood Pressure 122/64 121/67 Pulse Oximetry 97 98 Intake & Output 12/16/18 12/17/18 12/17/18 18:59 06:59 18:59 Intake Total 1000 / 1000 1180 / 1180 Balance 1000 / 1000 1180 / 1180 Intake: IV 1000 / 1000 1000 / 1000 NS Inj 1,000 ML @ 100 mls/hr IV 1000 / 1000 1000 / 1000 .CONT .Q10H [facility] Rx#:[id number] Oral 180 / 180 Other: # Voids 7 2 Date of Last Bowel Movement 12/15/18 12/16/18 12/17/18 # Bowel Movements 1 Narrative: GENERAL: in NAD, SKIN: Warm and dry. HEAD: Atraumatic. Normocephalic. EYES: Pupils equal and round. No scleral icterus. ENT: No nasal bleeding or discharge. Mucous membranes pink and moist. NECK: Trachea midline. No JVD. CARDIOVASCULAR: Regular rate and rhythm. RESPIRATORY: No accessory muscle use. GASTROINTESTINAL: Abdomen soft, non-tender, nondistended. MUSCULOSKELETAL: Extremities without clubbing, cyanosis, or edema. No obvious deformities. NEUROLOGICAL: Awake and alert. No aphasia, fluent articulate, oriented x3, monotone speech, no facial asymmetry, head thrust test negative OU 3-2mm, eomi, VFF, No drift, Motor grossly within normal limits. Five out of 5 muscle strength in the arms and legs. Tone normal in all 4 limbs, Sensory normal in all 4 extremities to pin, brisk lower extremity reflexes 2-3+, no clonus, planterflexor, PSYCHIATRIC: Flat affect - Constitutional no acute distress - Routine HEENT Exam Head: Present: normocephalic Eye: Present: EOMI Results - Labs CBC & Chem 7: 12/17/18 09:29 12/17/18 09:29 Labs: Laboratory Results - last 24 hr 12/16/18 12/16/18 12/17/18 10:34 13:45 09:29 WBC 6.8 RBC 3.82 L Hgb 12.6 Hct 36.8 MCV 96.4 MCH 33.0 MCHC 34.2 RDW 13.8 Plt Count 192 MPV 10.6 Neut % (Auto) 56.4 Lymph % (Auto) 35.2 [place] % (Auto) 5.5 Eos % (Auto) 2.4 Baso % (Auto) 0.5 Neut # (Auto) 3.9 Lymph # (Auto) 2.4 [place] # (Auto) 0.4 Eos # (Auto) 0.2 Baso # (Auto) 0.0 WBC Differential . Differential Comment Auto diff final Sodium Potassium Chloride Carbon Dioxide Anion Gap BUN Creatinine Estimated GFR Random Glucose Calcium Magnesium 1.9 Total Bilirubin AST ALT Alkaline Phosphatase Troponin I 0.02 0.02 Total Protein Albumin 12/17/18 09:29 WBC RBC Hgb Hct MCV MCH MCHC RDW Plt Count MPV Neut % (Auto) Lymph % (Auto) [place] % (Auto) Eos % (Auto) Baso % (Auto) Neut # (Auto) Lymph # (Auto) [place] # (Auto) Eos # (Auto) Baso # (Auto) WBC Differential Differential Comment Sodium 145 Potassium 3.8 Chloride 114 H Carbon Dioxide 25.8 Anion Gap 5 BUN 8 Creatinine 0.52 Estimated GFR Greater than 89 Random Glucose 82 Calcium 8.3 L Magnesium Total Bilirubin 0.5 AST 16 ALT 23 Alkaline Phosphatase 67 Troponin I Total Protein 6.2 L D Albumin 3.3 L D Review/Management - Diagnosis (1) Near syncope Code(s): R55 - Syncope and collapse Status: Acute Current Visit: Yes (2) Dizziness Code(s): R42 - Dizziness and giddiness Status: Acute Current Visit: Yes - Review/Management Plan: Chronic symptoms of dizziness. Neuro exam significant for brisker lower extremity reflexes which may be her baseline. Can be seen in female patients with anxiety; however the symptoms gait imbalance exclude any demyelinating lesion Several symptoms suggestive peripheral vestibulopathy, BPV Recommendations MRI brain spine This is unremarkable she can be followed up in the outpatient setting from neurologic standpoint The states she has an appointment with a specialist in fact tomorrow She should only do the activities she feels comfortable doing Follow-up with PCP
[2018-12-17 11:32] VITALS: O2SAT 97
[2018-12-17] MEDS ORDERED: Gadobutrol PF 2 MMOL/2 ML Vial (for RAD) IV.SIG ONE (12:09)
--- NOTE | 2018-12-17 12:22 | P.CONPSY ---
Provisional Diagnosis Admission Date: December 16, 2018 03:43 History of Present Illness Service: Psychiatry Consult date: 12/17/18 Primary Care Provider: No Primary Care Physician Chief Complaint: Dizziness History of Present Illness: This is a request for a psychiatric consult. Documentation was reviewed, case was discussed with nursing and patient was evaluated. Patient is a 53-year-old female with no psychiatric history asking for a psychiatric consultation. Patient believes she may have PTSD after witnessing her have a heart attack 2 weeks ago here in the [place]. Patient came in for her dizziness today. Patient describes "lots of anxiety." Patient describes flashbacks twice since this occurred. However, she is able to continue to work and she only experiencing these events when she is around her . is concerned that every time she sees him she is always asking him if he is okay. Patient denies depressed mood, denies low energy, denies trouble sleeping, denies nightmares. There is some hypervigilance, "feeling jumpy." Patient denies suicidal or homicidal ideation intent or plan. Past psych: Patient denies inpatient, outpatient, medication history, suicide attempts Past medical: Besides these episodes of recent dizziness no other medical history Past Famhx: Denies Past Social: Patient is employed full-time at [employer]. Lives with her . Denies any regular use of drugs or alcohol Review of Systems All other systems reviewed negative except as stated in HPI [facility] - History History Provided By: Patient - Medical History Medical History: Medical History (Last Reviewed 12/16/18 @ 09:01 by Minna Fine) Patient denies medical problems - Surgical History Surgical History: Surgical History (Last Reviewed 12/16/18 @ 09:01 by Minna Fine) No history of previous surgery - Tobacco History Second Hand Smoke Exposure: No Tobacco Use In Past 30 Days: No Smoking Status: Heavy tobacco smoker Tobacco Type: Cigarettes - Alcohol History How Often Do You Have a Drink Containing Alcohol: Never - Substance Use History Substance History: No History of Abuse - Travel History Recent Travel in the [place] Within the Last 8 Weeks: No Recent Travel Out of the Country Within the Last 8 Weeks: No - Immunization History Tetanus Immunization: Unsure Medications and Allergies Active Medications: Active Medications Acetaminophen (Tylenol) 650 mg PO Q4H PRN PRN Reason: Temp > 100.4 Al Hydroxide/Mg Hydroxide (Milk Of Magnesia Liq) 30 ml PO Q12H PRN PRN Reason: Mild Constipation Aspirin (Ecotrin) 81 mg PO DAILY [facility] Last Admin: 12/17/18 09:57 Dose: 81 mg Bisacodyl (Dulcolax Supp) 10 mg RECTAL DAILY PRN PRN Reason: SEVERE CONSITIPATION Sodium Chloride (Ns Inj) 1,000 mls @ 100 mls/hr IV.CONT .Q10H [facility] Last Admin: 12/17/18 11:59 Dose: Not Given Lactulose (Lactulose Liq) 30 ml PO DAILY PRN PRN Reason: SEVERE CONSITIPATION Lorazepam (Ativan Inj) 1 mg IV.PUSH Q2H PRN PRN Reason: DIZZINESS Last Admin: 12/17/18 02:00 Dose: 1 mg Meclizine HCl (Antivert) 25 mg PO Q8H PRN PRN Reason: DIZZINESS Last Admin: 12/17/18 09:59 Dose: 25 mg Ondansetron HCl (Zofran Inj) 4 mg IV.PUSH Q6H PRN PRN Reason: NAUSEA OR VOMITING Senna/Docusate Sodium (Chandni-Colace) 1 tab PO BID [facility] Last Admin: 12/17/18 09:57 Dose: 1 tab Sennosides (Senokot) 17.2 mg PO Q12H PRN PRN Reason: Moderate Constipation Sodium Chloride (Ns Flush) 2 ml IV.FLUSH BID [facility] Last Admin: 12/17/18 09:57 Dose: 2 ml Sodium Chloride (Ns Flush) 2 ml IV.FLUSH PRN PRN PRN Reason: FLUSH AFTER USING IV ACCESS Last Admin: 12/16/18 20:38 Dose: 2 ml Allergies Allergy/AdvReac Type Severity Reaction Status Date / Time No Known Allergies Allergy Verified 12/15/18 20:17 Home Medications Medication Instructions Recorded Confirmed Type aspirin [Aspir-81] 81 mg PO DAILY 12/13/18 12/15/18 History Exam Vital signs: Vital Signs 12/16/18 15:40 12/16/18 16:00 12/16/18 20:00 Temperature 98.0 F 98.4 F 98 F Pulse Rate 62 58 L 60 Respiratory Rate 16 16 16 Blood Pressure 183/75 H 122/63 117/63 Pulse Oximetry 97 97 97 12/17/18 00:00 12/17/18 01:14 12/17/18 04:00 Temperature 97.9 F 97.9 F Pulse Rate 65 58 L 62 Respiratory Rate 16 16 Blood Pressure 115/66 122/64 Pulse Oximetry 97 97 12/17/18 07:27 12/17/18 11:31 Temperature 98.5 F 98.4 F Pulse Rate 68 63 Respiratory Rate 18 18 Blood Pressure 121/67 119/58 L Pulse Oximetry 98 97 Intake & Output 12/16/18 12/17/18 12/17/18 18:59 06:59 18:59 Intake Total 1000 / 1000 1180 / 1180 Balance 1000 / 1000 1180 / 1180 Intake: IV 1000 / 1000 1000 / 1000 NS Inj 1,000 ML @ 100 mls/hr IV 1000 / 1000 1000 / 1000 .CONT .Q10H [facility] Rx#:[id number] Oral 180 / 180 Other: # Voids 7 2 Date of Last Bowel Movement 12/15/18 12/16/18 12/17/18 # Bowel Movements 1 Mental Status Examination Appearance: Appropriate Consciousness: Alert Orientation: x4 Motor Activity: Normal gait Speech: Unremarkable Language: Adequate Fund of Knowledge: Adequate Attention and Concentration: Adequate Memory: Unremarkable Mood: Appropriate Affect: Appropriate Thought Process & Associations: Intact Thought Content: Appropriate Hallucination Type: None Delusion Type: None Suicidal Ideation: No Suicidal Plan: No Suicidal Intention: No Homicidal Ideation: No Homicidal Plan: No Homicidal Intention: No Insight: Poor Judgment: Poor Assessment and Plan - Assessment (1) Adjustment disorder with anxiety Code(s): F43.22 - Adjustment disorder with anxiety Status: Acute - Plan Plan: Patient may have a mild form of acute PTSD or simply an adjustment disorder. At this time patient does not meet criteria for involuntary admission to the psychiatric unit. Treatment plan was discussed with patient and her family and they prefer to go to a psychologist and get therapy and stay away from the medication route Justification for Continued Inpatient Stay: Patient would decompensate in a less restrictive setting
--- NOTE | 2018-12-17 13:23 | MR ---
EXAM DATE: 12/17/2018 12:58 PM EST AGE/SEX: 53 years / Female INDICATIONS: Dizziness. Near syncope. CLINICAL DATA: This is the patient's initial encounter. Patient reports that signs and symptoms have been present for 1 day and indicates a pain score of 0/10. MEDICAL/SURGICAL HISTORY: None. None. COMPARISON: No prior exams available for comparison. TECHNIQUE: 3D [id number] MRA was performed. Source images, multiplanar STS MIP, and 3D volum e MIP reconstructions were reviewed. FINDINGS: There is excellent visualization of the major intracranial arteries out to the second-order branch ve ssels. There is no evidence for aneurysm, vessel truncation or stenosis, and no evidence for vascula r malformation. CONCLUSION: 1. Negative MRA [place] ([place] [facility] [place]) non contrast. Electronically signed by: Gabriel Orr MD Board Certified Radiologist 12/17/2018 1:22 PM EST
--- NOTE | 2018-12-17 13:46 | MR ---
EXAM DATE: 12/17/2018 1:34 PM EST AGE/SEX: 53 years / Female INDICATIONS: Dizziness. Near syncope. CLINICAL DATA: This is the patient's initial encounter. Patient reports that signs and symptoms have been present for 1 day and indicates a pain score of 0/10. MEDICAL/SURGICAL HISTORY: None. None. COMPARISON: No prior exams available for comparison. TECHNIQUE: Multiplanar, multisequence examination of the brain was performed without and with 5cc ml Gadavist (gadobutrol) contrast as a single exam dose. FINDINGS: No intracranial mass or midline shift. No hydrocephalus. No abnormal extra-axial fluid collections. N o recent infarction on the diffusion-weighted images. No sellar mass. CONCLUSION: 1. Unremarkable MRI brain. Electronically signed by: Gabriel Orr MD Board Certified Radiologist 12/17/2018 1:44 PM EST
--- NOTE | 2018-12-17 14:18 | MR ---
EXAM DATE: 12/17/2018 1:26 PM EST AGE/SEX: 53 years / Female INDICATIONS: Extremity weakness. CLINICAL DATA: This is the patient's initial encounter. Patient reports that signs and symptoms have been present for 1 day and indicates a pain score of 0/10. MEDICAL/SURGICAL HISTORY: None. None. COMPARISON: No prior exams available for comparison. TECHNIQUE: Multiplanar, multisequence MRI examination of the cervical spine was performed without an d with 5cc ml Gadavist (gadobutrol) contrast as a single exam dose. FINDINGS: At C2-3 there is no significant abnormality At C3-4-5 there are mild disc bulges without stenosis. C5-6 there is no significant abnormality. At C6-7-T1 is a mild disc bulge without stenosis. No cord signal abnormality. No fracture or spondylolisthesis. No abnormal enhancing lesions post cont rast. CONCLUSION: 1. Mild degenerative changes cervical spine as above. However no canal or foraminal stenosis. No cor d impingement or abnormal enhancement postcontrast. No acute findings. Electronically signed by: Gabriel Orr MD Board Certified Radiologist 12/17/2018 2:17 PM EST
--- NOTE | 2018-12-17 14:20 | MR ---
EXAM DATE: 12/17/2018 1:29 PM EST AGE/SEX: 53 years / Female INDICATIONS: Extremity weakness. CLINICAL DATA: This is the patient's initial encounter. Patient reports that signs and symptoms have been present for 1 day and indicates a pain score of 0/10. MEDICAL/SURGICAL HISTORY: None. None. COMPARISON: No prior exams available for comparison. TECHNIQUE: Multiplanar, multisequence MRI of the thoracic spine was performed without and with 5cc m l Gadavist (gadobutrol) contrast as a single exam dose. Findings: Mild degenerative disc disease within the thoracic spine. No central canal or foraminal uday nosis. No direct nerve root compression. Tiny central protrusion at T12-L1. Postcontrast no abnormal enhancing lesions are identified. No fracture or spondylolisthesis. CONCLUSION: 1. No acute findings. No cord signal abnormality, abnormal enhancement or cord compression. 2. Mild degenerative change of the thoracic spine as above. No fracture or spondylolisthesis. Electronically signed by: Gabriel Orr MD Board Certified Radiologist 12/17/2018 2:19 PM EST
[2018-12-17 16:03] LABS: Vitamin B12 436 pg/mL (193-986)
[2018-12-17 16:17] VITALS: BP 119/57; PULSE 72; TEMP 98.3
== END 2018-12-17 17:35 | disposition home or self-care (01) ==
LOC: NEPD 19:59 → NEDA 19:59 → NEPGCP 12-16 05:55
PROVIDERS: ADMIT Family Medicine; ATTEND Family Medicine
DX: R55 Syncope and collapse; R53.1 Weakness; R26.81 Unsteadiness on feet; F06.4 Anxiety disorder due to known physiological condition; F43.22 Adjustment disorder with anxiety; R00.2 Palpitations; R42 Dizziness and giddiness; R61 Generalized hyperhidrosis; Z79.82 Long term (current) use of aspirin; R51 Headache; F17.210 Nicotine dependence, cigarettes, uncomplicated; R06.00 Dyspnea, unspecified
CPT/HCPCS: 70544; 70553; 71020; 71046; 72156; 72157; 80053; 81001; 82550; 82607; 83735; 84443; 84484; 85025; 85610; 85651; 85652; 85730; 86140; 90761; 93005; 93306; 96361; 96374; 96376; 97162; 99285; A9585; G0378; G8987; G8988; J2060; J7030